=== PATIENT | male | born 1945 | race Caucasian/White ===

== ENCOUNTER 2016-12-15 08:00 | Inpatient (IN) | payer OTHER, BC ==
--- NOTE | 2016-12-15 08:39 | PDOC ---
History of Present Illness - General Chief Complaint: Pain, Acute Stated Complaint: ABDOMINAL PAIN Time Seen by Provider: 12/15/16 08:14 History Source: Patient - History of Present Illness Initial Comments: 12/15/16 08:37 CC: Abdominal Pain + Vomiting Patient is a 71 y.o. 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 Patient is unable to qualify the pain as stabbing/sharp/burning but states it is 10/10. On repeat exam patient notes he had a similar episode overnight on Monday when he woke with similar pain @ 3 am, vomited, and the pain resolved. Patient endorses a 1 day h/o of constipation and denies any fevers, chills, bloody stools or hematuria. Allergies: Aspirin Surgical: Cholecystectomy (2014); Appendectomy (childhood) Social: denies cigarettes, denies alcohol, denies recreational drugs PMD: Dr. Lucas Past History - Past Medical History Allergies/Adverse Reactions: Allergies Allergy/AdvReac Type Severity Reaction Status Date / Time aspirin Allergy Severe Swelling Verified 12/15/16 08:02 Home Medications: Ambulatory Orders NK [No Known Home Medication] 12/15/16 Anemia: No Asthma: No Cancer: No Cardiac Disorders: No CVA: No COPD: No CHF: No Dementia: No Diabetes: No GI Disorders: No Disorders: No HTN: No Hypercholesterolemia: No Liver Disease: No Seizures: No Thyroid Disease: No - Surgical History Abdominal Surgery: Yes (hernia) Appendectomy: Yes Cholecystectomy: Yes - Suicide/Smoking/Psychosocial Hx Smoking History: Never smoked Have you smoked in the past 12 months: No Information on smoking cessation initiated: No Hx Alcohol Use: No Drug/Substance Use Hx: No Substance Use Type: None Hx Substance Use Treatment: No Review of Systems - Review of Systems Constitutional: No: Chills, Fever Respiratory: No: Cough, Shortness of Breath Cardiac (ROS): No: Chest Pain, Lightheadedness, Palpitations ABD/GI: Yes: Vomiting : No: Burning, Dysuria All Other Systems: Reviewed and Negative *Physical Exam - Vital Signs Last Vital Signs Temp Pulse Resp BP Pulse Ox 99.1 F 89 20 137/72 96 12/15/16 08:03 12/15/16 08:03 12/15/16 08:03 12/15/16 08:03 12/15/16 08:03 - Physical Exam General Appearance: Yes: Nourished Neck: positive: Trachea midline, Supple Respiratory/Chest: positive: Lungs Clear, Normal Breath Sounds Cardiovascular: positive: Regular Rhythm, Regular Rate Gastrointestinal/Abdominal: positive: Tender (Diffuse Abdominal Tenderness in all 4 quadrants), Protuberent, Other. negative: Pulsatile Mass, Guarding, Rebound, Hernia Musculoskeletal: negative: CVA Tenderness (R), CVA Tenderness (L), Vertebral Tenderness Extremity: positive: Normal Capillary Refill, Normal Inspection Integumentary: positive: Normal Color, Dry, Warm Neurologic: positive: Fully Oriented, Alert ED Treatment Course - LABORATORY CBC & Chemistry Diagram: 12/17/16 07:00 12/17/16 07:00 Medical Decision Making - Medical Decision Making 12/15/16 10:13 Patient is a 71 y.o. male with a PMH of aortic dilitation (4.3 cm in 2016) who presents c/o abominal/chest pain + multiple episodes of non-bloody emesis. Initial DDX is for aortic dissection/aneurysm vs. pancreatitis vs. SBO vs. mesenteric ischemia. PLAN: 1. CBC, CMP 2. Lactic Acid 3. Troponin 4. EKG 12/15/16 10:35 Beside U/S shows normal sized descending aorta as well as normal cardiac contractility and LV size. Labs significant for leukocytosis (14) elevated LFT' s as well as Alkaline Phos. As patient has h/o cholecystectomy, liver U/S to evaluate for pathology. 12/15/16 13:29 Patient febrile @ 100; Prophylatic Abx (Metro/Levofloxacine) administered; Lactic Acid 2.8, commenced 1 L IV NS; CT shows mild CBD dilitation (0.9 --> 1.2 ) as well as possible live granuloma and splenomegaly. Dr. Brown, patient' s PCP, paged for admission. 12/15/16 13:46 Dr. Orozco, GI, paged for consult 12/15/16 13:52 Patient admitted under hospitalist service (admits for Dr. Brown) under Dr. Stahl. Patient's information entered incorrectly, PCP Dr. Lucas, contacted. 12/15/16 14:[address] Mccarthy surgical consult as well as Dr. Gibbs (GI); Landimitri consult cancelled 12/15/16 14:58 Dr. Mccarthy coming to evaluate patient; possible Dx CBD stone - will likely request MRI; Patient admitted for observation under Dr. Lucas. *DC/Admit/Observation/Transfer Diagnosis at time of Disposition: Common bile duct dilatation - Discharge Dispostion Condition at time of disposition: Good Admit: Yes - Referrals
[2016-12-15] MEDS ORDERED: morphine CARPU-JECT 2 MG/1 ML DISP.SYRIN IM ONE (08:44)
--- NOTE | 2016-12-15 08:49 | PDOC ---
Attending Attestation - Resident Resident Name: Barbara Duvall - ED Attending Attestation I have performed the following: I have examined & evaluated the patient, The case was reviewed & discussed with the resident, I agree w/resident's findings & plan, Exceptions are as noted - HPI HPI: 12/15/16 08:48 71yM with hx of thoracic aortic anrysm presents with complaint of abdominal pain. Pt notes that he started hving epigastric pain that is associated with vomiting since dinner, pt denies any bm/psasing flatus. no asosciate dfever/ chills, pt does note the pain radiates up to the chest bu tis unable to describe the nature of the pain otherwise. pt notes he did have similar sypmtoms on monday night into monday but resolved by monday. pt dnies any sob , numbnes/tingling/weakness, leg pain/swelling. - Physicial Exam PE: 12/15/16 09:04 GENERAL: The patient is awake, alert, and fully oriented, Uncomfortable appearing HEAD: Normocephalic, atraumatic. EYES: extraocular movements intact, sclera anicteric, conjunctiva clear. ENT: Normal voice, Moist mucous membranes. NECK: Normal range of motion, supple LUNGS: Breath sounds equal, clear to auscultation bilaterally. No wheezes, no rhonchi, no rales. HEART: Regular rate and rhythm, normal S1 and S2 without murmur, rub or gallop. ABDOMEN: mild diffuse tenderness throughout, no palpable pulsatile masses, + volutnary guarding, no rebound. No CVA tenderness EXTREMITIES: Normal range of motion, no edema. No clubbing or cyanosis. No cords, erythema, or tenderness. NEUROLOGICAL: No facial assymetry, Normal speech, movin gall 4 extremities spontaneously and symmetrically PSYCH: Normal mood, normal affect. SKIN: Warm, Dry, normal turgor, - Medical Decision Making 12/15/16 09:06 differential for the pts sypmtoms includes pancreatitis, gastritis, consider also possibly AAA, acs will ck labs will ckcxr wlil r/o acs mporphine for pain 12/15/16 10:17 The patient's blood work was reviewed and as noted for elevated LFTs and bilirubin of 4.5 Will obtain ultrasound of the liver and gb The patient is feeling significantly improved after morphine 12/15/16 17:10 pt had developed a fever and was written for abx the pts ct does show an dilated cbd pt was mitted pending GI consultation i nlight of fever, symptoms, consider cholangitis Heart Score/ECG Review - ECG Impressions Comment:: 12/15/16 10:16 Twelve-lead EKG was performed and reviewed by me. There is normal sinus rhythm with a normal rate. Rate of 78 The axis is normal. The intervals are normal. There is normal R wave progression There are no ST or T wave abnormalities. Impression: Normal twelve-lead EKG 12/15/16 10:17
[2016-12-15] MEDS ORDERED: morphine CARPU-JECT 4 MG/1 ML DISP.SYRIN IVPUSH ONE ×2 (08:51→12:25)
[2016-12-15] MEDS ORDERED: morphine CARPU-JECT 10 MG/1 ML DISP.SYRIN ONE ×2 (08:54→12:26)
[2016-12-15 09:20] LABS: BASOPHIL 0.3 % (0-2.0); EOSINOPHIL 0.2 % (0-4.5); MCH 30.6 pg (25.7-33.7); MEAN CELL VOLUME 92.6 fl (80-96); MEAN PLT VOLUME 10.2 fl (7.5-11.1); NEUTROPHILS 84.8 % (42.8-82.8); PLATELET COUNT 331 K/MM3 (134-434); RDW 14.2 % (11.9-15.9); WHITE BLOOD COUNT 12.9 K/mm3 (4.0-10.0)
[2016-12-15 09:47] LABS: ALBUMIN 3.9 g/dl (3.4-5.0); ALK PHOS 419 U/L (45-117); ANION GAP 11 (8-16); BILIRUBIN,TOTAL 4.5 mg/dL (0.2-1.0); CALCIUM 9.6 mg/dL (8.5-10.1); CO2 28 mmol/L (21-32); CPK 103 IU/L (39-308); GLUCOSE,RANDOM 235 mg/dL (74-106); SGPT/ALT 362 U/L (12-78); TOT PROT 7.7 g/dl (6.4-8.2)
[2016-12-15 09:49] LABS: TROPONIN I < 0.02 ng/ml (0.00-0.05)
[2016-12-15 10:00] LABS: SGOT/AST 379 U/L (15-37)
--- NOTE | 2016-12-15 11:53 | EKG ---
Test Reason : Blood Pressure : / mmHG Vent. Rate : 078 BPM Atrial Rate : 078 BPM P-R Int : 196 ms QRS Dur : 090 ms QT Int : 382 ms P-R-T Axes : 045 -07 029 degrees QTc Int : 435 ms NORMAL SINUS RHYTHM NORMAL ECG WHEN COMPARED WITH ECG OF 31-JUL-2012 12:16, NO SIGNIFICANT CHANGE WAS FOUND Confirmed by DENVER LIMON MD ([id number]) on 12/15/2016 11:52:52 AM Referred By: Confirmed By:DENVER LIMON MD
[2016-12-15] MEDS ORDERED: ONDANSETRON 4 MG/2 ML VIAL IVPUSH ONE (12:26)
[2016-12-15] MEDS ORDERED: ONDANSETRON 4 MG/2 ML VIAL ONE (12:27)
[2016-12-15] MEDS ORDERED: ACETAMINOPHEN 325 MG TABLET (FP) PO ONE (12:52)
[2016-12-15] MEDS ORDERED: METRONIDAZOLE 500 MG PREMIXED 100 ML IVPB ONE ×2 (12:55→14:22)
[2016-12-15] MEDS ORDERED: LEVOFLOXACIN 750 MG IVPB 150 ML IVPB ONE ×2 (12:55→14:21)
[2016-12-15] MEDS ORDERED: ACETAMINOPHEN 325 MG TABLET (FP) ONE (13:00)
[2016-12-15] MEDS ORDERED: SODIUM CHLORIDE 0.9% 1000 ML INFUS.BAG IV ONE (13:29)
[2016-12-15] MEDS ORDERED: PIPERACIL/TAZOB 3.375 GM 3.375 GM/50 ML PREMIX IVPB SCH (18:15)
[2016-12-15 18:32] VITALS: BMI 26.7
--- NOTE | 2016-12-15 18:37 | PN ---
Progress Note (short form) - Note Progress Note: case d/w Dr. Neville. suspected cholangitis. He will see patient later this evening In the interim: MRCP ordered however cancelled as Mr. Collins has metal fragments in body IV abx ordered: Zosyn, with dose ordered for now. ID consult placed NPO except meds with small sips water IV hydration Put on schedule for possible ERCP tomorrow
[2016-12-15] MEDS ORDERED: DEXTROSE 5%-NORMAL SALINE 1,000 ML IV SCH (18:45)
[2016-12-15] MEDS: PIPERACILLIN/TAZOB 3.375 GM 50 ML IVPB SCH (18:51)
--- NOTE | 2016-12-15 19:19 | CONSULT ---
Consult Consult Specialty:: Surgery Reason for Consultation:: Abdominal pain , abnormal liver function tests. - History of Present Illness Chief Complaint: Abdominal pain , manly in epigastrium since midnight. History of Present Illness: C/O sudden onset of abdominal pain in upper abdomen. He is known to have aneurysm of the ascending aorta, and has had a cholecystectomy. - History Source History Provided By: Patient Limitations to Obtaining History: No Limitations - Past Surgical History Past Surgical History: Yes: Cholecystectomy - Alcohol/Substance Use Hx Alcohol Use: No - Smoking History Smoking history: Never smoked Have you smoked in the past 12 months: No Home Medications - Allergies Allergies/Adverse Reactions: Allergies Allergy/AdvReac Type Severity Reaction Status Date / Time aspirin Allergy Severe Swelling Verified 12/15/16 08:02 - Home Medications Home Medications: Ambulatory Orders NK [No Known Home Medication] 12/15/16 Physical Exam Vital Signs: Vital Signs Temperature 99.2 F 12/15/16 18:20 Pulse Rate 94 H 12/15/16 18:20 Respiratory Rate 18 12/15/16 18:20 Blood Pressure 122/65 12/15/16 18:20 O2 Sat by Pulse Oximetry (%) 96 12/15/16 18:37 Gastrointestinal: Yes: Tenderness, Tenderness, Epigastrium Imaging - Results Cat Scan: Report Reviewed, Image Reviewed Ultrasound: Report Reviewed, Image Reviewed Problem List - Problems (1) Abdominal pain Code(s): R10.9 - UNSPECIFIED ABDOMINAL PAIN Qualifiers: Abdominal location: epigastric Qualified Code(s): R10.13 - Epigastric pain; R10.13 - Epigastric pain (2) Jaundice Code(s): R17 - UNSPECIFIED JAUNDICE (3) Abnormal liver enzymes Code(s): R74.8 - ABNORMAL LEVELS OF OTHER SERUM ENZYMES (4) Leucocytosis Code(s): D72.829 - ELEVATED WHITE BLOOD CELL COUNT, UNSPECIFIED Assessment/Plan G.I. work up. Planned to have ERCP tomorrow. ? Retained CBD stone, vs neoplasm. Will follow, Hydrate , antibiotics. Will follow.
--- NOTE | 2016-12-15 19:48 | HP ---
Admitting History and Physical - Primary Care Physician PCP: Jeremiah Lucas - Admission Chief Complaint: abd pain History of Present Illness: 71 y/o M w/ T2DM (diet controlled) who present to ED (via 911) for severe abd pain & n-v. The Pt states that he 1st started w/ abd PM late PM on sat 12/10/16 after having eaten at a restaurant. He says he was well up until that time. He developed upper abd pain after 7pm, w/ nausea. He induced vomiting with some relief, and went to bed, but several hours later he again re-developed upper abd pain. He again vomited several times into the night, then the discomfort slowly subsided. He felt weak and achy the following day and didn't eat or drink much. On 12/13/16 he felt better, and became more active, but ate light without any GI problem. He felt even better on 12/14/16, but didn't eat much until later that day when he was invited for dinner. he had pasta w/ fish sauce and cheese with a glass of wine. Upon going home, he again had a recurrence of the same Sx that he initially experienced on monday the which continued into this AM. He felt very weak and could not rise up and was then taken to the ED via EMS. He denied any diarrhea. He did not see any blood in the vomitus. He did say that he urine was a dark yellow on monday12/11/16, but cleared up afterwards. He was completely well up until 12/10/16 before eating at the restaurant. He denies any recent travel. He was given MS in the Ed to relieve his pain, and he feels fairly comfortable at this time. 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)) Musculoskeletal: Yes: Osteoarthritis (mild) Endocrine: Yes: Diabetes Mellitus (diet controlled) - Past Surgical History Past Surgical History: Yes: Appendectomy, Cholecystectomy, Hernia Repair - Smoking History Smoking history: Never smoked Have you smoked in the past 12 months: No - Alcohol/Substance Use Hx Alcohol Use: No History of Substance Use: reports: None - Social History Usual Living Arrangement: Yes: Alone () Occupation: retired (construction) History of Recent Travel: No Other Social History: hx of accidental shrapnel injury in the s while in the Home Medications - Allergies Allergies/Adverse Reactions: Allergies Allergy/AdvReac Type Severity Reaction Status Date / Time aspirin Allergy Severe Swelling Verified 12/15/16 08:02 - Home Medications Home Medications: Ambulatory Orders NK [No Known Home Medication] 12/15/16 Family Disease History - Family Disease History Family History: Unremarkable Review of Systems - Review of Systems Constitutional: reports: Weakness Eyes: reports: No Symptoms HENT: reports: No Symptoms Neck: reports: No Symptoms Cardiovascular: reports: No Symptoms Respiratory: reports: SOB (while in pain) Gastrointestinal: reports: Abdominal Pain, Vomiting Genitourinary: reports: No Symptoms Musculoskeletal: reports: Muscle Weakness (FUSE COILER) Physical Examination Vital Signs: Vital Signs Temperature 99.2 F 12/15/16 18:20 Pulse Rate 94 H 12/15/16 18:20 Respiratory Rate 18 12/15/16 18:20 Blood Pressure 122/65 12/15/16 18:20 O2 Sat by Pulse Oximetry (%) 96 12/15/16 18:37 Findings/Remarks: found lying in bed, fully alert in NAD skin--warm & flushed; no rashes head--NC eyes--bilat mild injection oral--no gross mucosal lesions appreciated; all structures at midline neck--supple, no masses lungs--grossly clear bilat, unlabored heart--RR abd--BS mildly present, abd soft, NT, minimla non lisbeth tenderness in upper abd ext--No CCE; DP's bilat felt; no soft tissue tenderness, no joint pain on ROM neuro--fully alert and coherent to baseline; no gross motor/sens deficits; speech and cogn appear to be intact Labs: Troponin, BNP 12/15/16 09:00 Troponin I < 0.02 CBCD WBC 12.9 K/mm3 (4.0-10.0) H D 12/15/16 09:00 RBC 5.39 M/mm3 (4.00-5.60) 12/15/16 09:00 Hgb 16.5 GM/dL (11.7-16.9) 12/15/16 09:00 Hct 50.0 % (35.4-49) H 12/15/16 09:00 MCV 92.6 fl (80-96) 12/15/16 09:00 MCHC 33.0 g/dl (32.0-35.9) 12/15/16 09:00 RDW 14.2 % (11.9-15.9) 12/15/16 09:00 Plt Count 331 K/MM3 (134-434) D 12/15/16 09:00 MPV 10.2 fl (7.5-11.1) 12/15/16 09:00 CMP Sodium 136 mmol/L (136-145) 12/15/16 09:00 Potassium 4.7 mmol/L (3.5-5.1) 12/15/16 09:00 Chloride 97 mmol/L (98-107) L 12/15/16 09:00 Carbon Dioxide 28 mmol/L (21-32) 12/15/16 09:00 Anion Gap 11 (8-16) 12/15/16 09:00 BUN 22 mg/dL (7-18) H 12/15/16 09:00 Creatinine 1.0 mg/dL (0.7-1.3) D 12/15/16 09:00 Creat Clearance w eGFR > 60 (>60) 12/15/16 09:00 Random Glucose 235 mg/dL (74-106) H D 12/15/16 09:00 Calcium 9.6 mg/dL (8.5-10.1) 12/15/16 09:00 Total Bilirubin 4.5 mg/dL (0.2-1.0) H D 12/15/16 09:00 AST 379 U/L (15-37) H D 12/15/16 09:00 ALT 362 U/L (12-78) H D 12/15/16 09:00 Alkaline Phosphatase 419 U/L (45-117) H D 12/15/16 09:00 Total Protein 7.7 g/dl (6.4-8.2) D 12/15/16 09:00 Albumin 3.9 g/dl (3.4-5.0) D 12/15/16 09:00 CARDIAC ENZYMES Creatine Kinase 103 IU/L (39-308) 12/15/16 09:00 Troponin I < 0.02 ng/ml (0.00-0.05) 12/15/16 09:00 Imaging - Results Cat Scan: Report Reviewed Ultrasound: Report Reviewed EKG: Report Reviewed Problem List - Problems (1) Abdominal pain Assessment/Plan: acute onset, in the aftermath of a restaurant meal; which subsided in the days after; but re-emerged last PM after intake of a moderate sized meal; PLAN: NPO, Follow LFTS, GI eval. IV abs Code(s): R10.9 - UNSPECIFIED ABDOMINAL PAIN Qualifiers: Abdominal location: right upper quadrant Qualified Code(s): R10.11 - Right upper quadrant pain; R10.11 - Right upper quadrant pain (2) Abnormal liver enzymes Assessment/Plan: in connection with acute abd pain & fever; cause unclear if due to Hepatitis or a CBD narrowing as suggested. Cannit undertake MRCP, thus may need ERCP. PLAN: keep NPO Code(s): R74.8 - ABNORMAL LEVELS OF OTHER SERUM ENZYMES (3) Common bile duct dilatation Assessment/Plan: noted on CT; could be 2nd to past cholecystectomy but may need to r/o distal obstruction Code(s): K83.8 - OTHER SPECIFIED DISEASES OF BILIARY TRACT (4) Diabetes mellitus type 2, diet-controlled Assessment/Plan: developed over 1 yr ago; has been managed by diet control; will check BGMs and a1c Code(s): E11.9 - TYPE 2 DIABETES MELLITUS WITHOUT COMPLICATIONS (5) Ascending aortic aneurysm Assessment/Plan: not new; previously noted; appears stable in size (see chest CT) Code(s): I71.2 - THORACIC AORTIC ANEURYSM, WITHOUT RUPTURE (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 ~~~~~~~~~~~~~~~~~~~~~~~~~~~~~~~~ Dr Lucas......1 Hr
[2016-12-15] MEDS ORDERED: PT OWN MED DRAWER 7, Y5N ONE (20:15)
[2016-12-15] MEDS ORDERED: morphine CARPU-JECT 4 MG/1 ML DISP.SYRIN IVPUSH PRN (20:19)
[2016-12-15] MEDS ORDERED: ACETAMINOPHEN 650 MG/20.3 ML ORAL SOLUTION (CUPS) PO PRN (20:20)
[2016-12-15] MEDS ORDERED: INSULIN SLIDING SCALE (NOVOLOG) 1 VIAL SQ SCH (20:30)
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
[2016-12-15] MEDS: LACTATED RINGERS SOLUTION 1,000 ML IV SCH (21:52)
[2016-12-15] MEDS: INSULIN SLIDING SCALE (NOVOLOG) 1 VIAL SQ SCH (23:30)
[2016-12-16] MEDS: PIPERACILLIN/TAZOB 3.375 GM 50 ML IVPB SCH ×6 (02:34→20:56)
[2016-12-16] MEDS: LACTATED RINGERS SOLUTION 1,000 ML IV SCH ×2 (05:00→23:31)
[2016-12-16] MEDS: INSULIN SLIDING SCALE (NOVOLOG) 1 VIAL SQ SCH ×3 (06:05→19:23)
[2016-12-16 08:09] LABS: BASOPHIL 0.6 % (0-2.0); EOSINOPHIL 0.7 % (0-4.5); MCH 30.8 pg (25.7-33.7); MCHC 33.2 g/dl (32.0-35.9); MEAN CELL VOLUME 92.7 fl (80-96); MEAN PLT VOLUME 10.3 fl (7.5-11.1); NEUTROPHILS 81.3 % (42.8-82.8); PLATELET COUNT 214 K/MM3 (134-434); RDW 14.6 % (11.9-15.9); WHITE BLOOD COUNT 12.5 K/mm3 (4.0-10.0)
[2016-12-16 08:38] LABS: INR 1.33 (0.82-1.09)
[2016-12-16 08:41] LABS: ACTIVATED PTT 29.4 SECONDS (26.9-34.4)
[2016-12-16 08:43] LABS: BILIRUBIN,DIRECT 8.9 mg/dL (0.0-0.2)
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
[2016-12-16 08:47] LABS: ALBUMIN 2.7 g/dl (3.4-5.0); ANION GAP 9 (8-16); CALCIUM 7.9 mg/dL (8.5-10.1); CO2 28 mmol/L (21-32); GLUCOSE,RANDOM 147 mg/dL (74-106)
[2016-12-16 08:52] LABS: ALK PHOS 291 U/L (45-117); BILIRUBIN,TOTAL 11.2 mg/dL (0.2-1.0); CREATININE 1.1 mg/dL (0.7-1.3); SGOT/AST 121 U/L (15-37); SGPT/ALT 231 U/L (12-78); TOT PROT 5.5 g/dl (6.4-8.2)
[2016-12-16] MEDS ORDERED: PT OWN MED DRAWER 7, Y5N ONE (09:35)
[2016-12-16 09:48] LABS: URINE APPEARANCE CLEAR; URINE BLOOD 3+ (NEGATIVE); URINE COLOR AMBER; URINE GLUCOSE (UA) NEGATIVE (NEGATIVE); URINE KETONE NEGATIVE (NEGATIVE); URINE NITRITE NEGATIVE (NEGATIVE); URINE UROBILINOGEN 4.0 E.U/dl mg/dL (0.2-1.0)
[2016-12-16 09:51] LABS: URINE PROTEIN 1+ (NEGATIVE)
[2016-12-16 09:53] LABS: URINE RBC 8 /hpf (0-3); URINE WBC 1 /hpf (3-5)
[2016-12-16] MEDS ORDERED: INDOMETHACIN 50 MG RECTAL SUPPOSITORY PR ONE ×2 (11:00→15:20)
--- NOTE | 2016-12-16 11:07 | PN ---
Teaching Attending Note Name of Resident: Mika Muñiz ATTENDING PHYSICIAN STATEMENT I saw and evaluated the patient. I reviewed the resident's note and discussed the case with the resident. I agree with the resident's findings and plan as documented. SUBJECTIVE: 71 y/o male s/p cholecystectomy admitted with RUQ pain. Pt jaundiced. CT shows dilated bile ducts. Febrile with elevated LFTs. BC +GNR OBJECTIVE: Afebrile Icteric Cor S1S2 Lungs clear + RUQ tenderness ASSESSMENT AND PLAN: Gram Negative bacteremia/ sepsis secondary to biliary tract source R/O Choledocholithiasis Await cultures Continue empiric zosyn ERCP
[2016-12-16] MEDS ORDERED: PHYTONADIONE 10 MG/1 ML AMP IVPB ONE ×2 (11:30→15:40)
[2016-12-16 11:34] LABS: URINE LEUK ESTERASE Negative (NEGATIVE)
[2016-12-16] MEDS ORDERED: ONDANSETRON 4 MG/2 ML VIAL IVPUSH PRN (14:43)
[2016-12-16] MEDS ORDERED: PROMETHAZINE HCL 25 MG/1 ML VIAL IVPUSH PRN (14:43)
[2016-12-16] MEDS ORDERED: LACTATED RINGERS SOLUTION 1,000 ML IV SCH ×2 (14:45→18:00)
[2016-12-16] MEDS ORDERED: PROPOFOL 20 ML ONE (14:46)
[2016-12-16] MEDS ORDERED: LIDOCAINE HCL/PF 2% SDV 5ML VIAL ONE (14:46)
[2016-12-16] MEDS ORDERED: ROCURONIUM BROMIDE 50 MG/5 ML VIAL ONE (14:46)
[2016-12-16] MEDS ORDERED: GLYCOPYRROLATE 0.2 MG/1 ML VIAL ONE ×3 (14:49)
[2016-12-16] MEDS ORDERED: ONDANSETRON 4 MG/2 ML VIAL ONE (14:49)
[2016-12-16] MEDS ORDERED: NEOSTIGMINE METHYLSULFATE 0.5 MG/ML - 10 ML MDV ONE (14:50)
[2016-12-16] MEDS ORDERED: DEXAMETHASONE SOD PHOSPHATE 10 MG/1 ML VIAL ONE (14:50)
[2016-12-16] MEDS ORDERED: PIPERACILLIN/TAZOB 3.375 GM 50 ML IVPB SCH (15:00)
[2016-12-16] MEDS ORDERED: ceFAZolin SODIUM 1 GM VIAL ONE (15:03)
[2016-12-16] MEDS ORDERED: ceFAZolin SODIUM 1 GM VIAL IVPB ONE (15:40)
--- NOTE | 2016-12-16 17:46 | PN ---
Progress Note (short form) - Note Progress Note: GI Procedure NOte: Please see ERCP report. I was inabole to cannnlat eand access the CBD even after attempting a precut fistulotomy. I discussed the situation with Dr. Martinez and the family and decision was made under the children's informed consent to proceed with PTC while under general anesthesia. I had discussed this possibility with Rian and his daughter last night. PTC revealed a dilated CBD with multiple stones and a tight distal CBD stricture. Dr Martinez yielded blood pus upon accessing the duct. Gram negative organisms are growing in the blood. He was able to pass a stent through the stricture and into the duodenum. Findings were discussed with the family and with Dr Daryl Lucas. Vitamin K was administered IVPB. Problem List - Problems (1) Hx of appendectomy Code(s): Z90.49 - ACQUIRED ABSENCE OF OTHER SPECIFIED PARTS OF DIGESTIVE TRACT (2) Colon polyps Code(s): K63.5 - POLYP OF COLON
--- NOTE | 2016-12-16 20:51 | PN ---
Progress Note (short form) - Note Progress Note: medical note Current Medications Acetaminophen (Tylenol Oral Solution -) 650 mg PO Q6H PRN PRN Reason: FEVER OR PAIN Piperacillin/Tazobactam/Dextrose (Zosyn 3.375gm Ivpb (Premix)) 50 mls @ 100 mls /hr IVPB Q6H-IV ROCKY PRN Reason: Protocol Last Admin: 12/16/16 19:22 Dose: Not Given Lactated Ringer's (Lactated Ringers Solution) 1,000 mls @ 250 mls/hr IV ASDIR ROCKY Stop: 12/17/16 01:00 Last Admin: 12/16/16 19:23 Dose: Not Given Lactated Ringer's (Lactated Ringers Solution) 1,000 mls @ 200 mls/hr IV ASDIR ROCKY Stop: 12/17/16 07:00 Lactated Ringer's (Lactated Ringers Solution) 1,000 mls @ 150 mls/hr IV ASDIR ROCKY Stop: 12/17/16 14:00 Lactated Ringer's (Lactated Ringers Solution) 1,000 mls @ 125 mls/hr IV ASDIR ROCKY Insulin Aspart (Novolog Vial Sliding Scale -) 1 vial SQ Q6HPO ROCKY PRN Reason: Protocol Last Admin: 12/16/16 19:23 Dose: Not Given Morphine Sulfate (Morphine Injection -) 4 mg IVPUSH Q6H PRN PRN Reason: PAIN Ondansetron HCl (Zofran Injection) 4 mg IVPUSH Q6H PRN PRN Reason: NAUSEA AND/OR VOMITING Stop: 12/16/16 20:44 Laboratory Results - last 24 hr 12/15/16 12/15/16 12/16/16 21:24 23:24 05:53 WBC RBC Hgb Hct MCV MCH MCHC RDW Plt Count MPV Neutrophils % Lymphocytes % Monocytes % Eosinophils % Basophils % PT with INR INR PTT (Actin FS) Sodium Potassium Chloride Carbon Dioxide Anion Gap BUN Creatinine Creat Clearance w eGFR POC Glucometer 196 177 145 Random Glucose Hemoglobin A1c % Lactic Acid Calcium Total Bilirubin Direct Bilirubin AST ALT Alkaline Phosphatase Total Protein Albumin Total Amylase Lipase Urine Color Urine Appearance Urine pH Ur Specific [place] Urine Protein Urine Glucose (UA) Urine Ketones Urine Blood Urine Nitrite Urine Bilirubin Urine Urobilinogen Ur Leukocyte Esterase Urine RBC Urine WBC 12/16/16 12/16/16 12/16/16 06:00 06:30 06:30 WBC 12.5 H RBC 4.40 Hgb 13.5 D Hct 40.8 D MCV 92.7 MCH 30.8 MCHC 33.2 RDW 14.6 Plt Count 214 D MPV 10.3 Neutrophils % 81.3 Lymphocytes % 9.9 D Monocytes % 7.5 Eosinophils % 0.7 D Basophils % 0.6 PT with INR 15.00 H INR 1.33 H D PTT (Actin FS) 29.4 Sodium Potassium Chloride Carbon Dioxide Anion Gap BUN Creatinine Creat Clearance w eGFR POC Glucometer Random Glucose Hemoglobin A1c % Lactic Acid Calcium Total Bilirubin Direct Bilirubin AST ALT Alkaline Phosphatase Total Protein Albumin Total Amylase Lipase Urine Color Ce Urine Appearance Clear Urine pH 5.0 Ur Specific [place] 1.015 Urine Protein 1+ H Urine Glucose (UA) Negative Urine Ketones Negative Urine Blood 3+ H Urine Nitrite Negative Urine Bilirubin 4.0 Urine Urobilinogen 4.0 e.u/dl Ur Leukocyte Esterase Negative Urine RBC 8 Urine WBC 1 12/16/16 12/16/16 12/16/16 06:30 06:30 06:30 WBC RBC Hgb Hct MCV MCH MCHC RDW Plt Count MPV Neutrophils % Lymphocytes % Monocytes % Eosinophils % Basophils % PT with INR INR PTT (Actin FS) Sodium 139 Potassium 4.0 Chloride 102 Carbon Dioxide 28 Anion Gap 9 BUN 25 H Creatinine 1.1 Creat Clearance w eGFR > 60 POC Glucometer Random Glucose 147 H D Hemoglobin A1c % 6.4 H D Lactic Acid 1.1 Calcium 7.9 L Total Bilirubin 11.2 H D Direct Bilirubin AST 121 H D ALT 231 H D Alkaline Phosphatase 291 H D Total Protein 5.5 L D Albumin 2.7 L D Total Amylase Lipase Urine Color Urine Appearance Urine pH Ur Specific [place] Urine Protein Urine Glucose (UA) Urine Ketones Urine Blood Urine Nitrite Urine Bilirubin Urine Urobilinogen Ur Leukocyte Esterase Urine RBC Urine WBC 12/16/16 12/16/16 06:30 11:21 WBC RBC Hgb Hct MCV MCH MCHC RDW Plt Count MPV Neutrophils % Lymphocytes % Monocytes % Eosinophils % Basophils % PT with INR INR PTT (Actin FS) Sodium Potassium Chloride Carbon Dioxide Anion Gap BUN Creatinine Creat Clearance w eGFR POC Glucometer 146 Random Glucose Hemoglobin A1c % Lactic Acid Calcium Total Bilirubin Direct Bilirubin 8.9 H AST ALT Alkaline Phosphatase Total Protein Albumin Total Amylase 26 Lipase 113 Urine Color Urine Appearance Urine pH Ur Specific [place] Urine Protein Urine Glucose (UA) Urine Ketones Urine Blood Urine Nitrite Urine Bilirubin Urine Urobilinogen Ur Leukocyte Esterase Urine RBC Urine WBC Vital Signs Temperature 98.4 F 12/16/16 19:10 Pulse Rate 61 12/16/16 19:01 Respiratory Rate 61 H 12/16/16 19:10 Blood Pressure 140/72 12/16/16 19:10 O2 Sat by Pulse Oximetry (%) 96 12/16/16 18:30 post Op state ````````````````````` heart-RR neuro--groggy ```````````````````````````````````` Summ > Obstructive jaundice--2nd CBD stones; which could not be removed by ERCP, however, a stent was placed through the stricture by IR. Further intervention will likley be required, but will need to attain a level of stabilization before the next step is taken. (see GI note) PLAN: folow chemistries. > Sepsis--Gm(-) org; currently afebrile and not in shock, nor with end organ involvement; lactic acid is down to NL. Will cont Zosyn, and await final ID > DM--T2; a1c at 6.4 without meds; cont monitoring for now > hematuria--cause uncertain; may need US. ~~~~~~~~~~~~~~~~~ Dr Lucas Problem List - Problems (1) Abdominal pain Code(s): R10.9 - UNSPECIFIED ABDOMINAL PAIN Qualifiers: Abdominal location: right upper quadrant Qualified Code(s): R10.11 - Right upper quadrant pain; R10.11 - Right upper quadrant pain (2) Abnormal liver enzymes Code(s): R74.8 - ABNORMAL LEVELS OF OTHER SERUM ENZYMES (3) Common bile duct dilatation Code(s): K83.8 - OTHER SPECIFIED DISEASES OF BILIARY TRACT (4) Diabetes mellitus type 2, diet-controlled Code(s): E11.9 - TYPE 2 DIABETES MELLITUS WITHOUT COMPLICATIONS (5) Ascending aortic aneurysm Code(s): I71.2 - THORACIC AORTIC ANEURYSM, WITHOUT RUPTURE (6) Pulmonary granuloma Code(s): 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
[2016-12-16] MEDS ORDERED: morphine CARPU-JECT 2 MG/1 ML DISP.SYRIN IVPUSH PRN (23:37)
[2016-12-17] MEDS: INSULIN SLIDING SCALE (NOVOLOG) 1 VIAL SQ SCH ×4 (00:05→18:30)
[2016-12-17] MEDS: PIPERACILLIN/TAZOB 3.375 GM 50 ML IVPB SCH (02:44)
[2016-12-17] MEDS: LACTATED RINGERS SOLUTION 1,000 ML IV SCH ×5 (05:12→21:40)
[2016-12-17 07:51] LABS: MCH 30.7 pg (25.7-33.7); MCHC 32.8 g/dl (32.0-35.9); MEAN CELL VOLUME 93.4 fl (80-96); MEAN PLT VOLUME 10.3 fl (7.5-11.1); NEUTROPHILS 86.8 % (42.8-82.8); PLATELET COUNT 212 K/MM3 (134-434); RDW 14.5 % (11.9-15.9); WHITE BLOOD COUNT 11.4 K/mm3 (4.0-10.0)
[2016-12-17 08:14] LABS: INR 1.07 (0.82-1.09); PROTHROMBIN TIME (PATIENT) 12.1 SEC (9.98-11.88)
--- NOTE | 2016-12-17 08:28 | PN ---
Progress Note (short form) - Note Progress Note: Anesthesia Post op Pt seen and examined S:alert and awake O: Vital Signs Temperature 98.1 F 12/17/16 06:58 Pulse Rate 46 L 12/17/16 06:58 Respiratory Rate 20 12/17/16 06:58 Blood Pressure 107/58 12/17/16 06:58 O2 Sat by Pulse Oximetry (%) 99 12/16/16 21:00 CBC, BMP 12/17/16 07:00 A/P: Current Active Problems Abdominal pain (Acute) Abnormal liver enzymes (Acute) Ascending aortic aneurysm (Acute) Colon polyps (Acute) Common bile duct dilatation (Acute) Diabetes mellitus type 2, diet-controlled (Acute) History of cholecystectomy (Acute) Hx of appendectomy (Acute) Jaundice (Acute) Leucocytosis (Acute) Pulmonary granuloma (Acute) s/p eteroscopy percutanous billiary cather placement Doing well post op Continue current care Will Love MD
--- NOTE | 2016-12-17 08:36 | PN ---
Progress Note, Physician Chief Complaint: ID Unable to perform ERCP so percutaneous biliary drain place IR Dr Peterson Pus upon accessing duct Zosyn q 6 H No fever O2 sat OFF oxygen 95% - Current Medication List Current Medications: Active Medications Acetaminophen (Tylenol Oral Solution -) 650 mg PO Q6H PRN PRN Reason: FEVER OR PAIN Piperacillin/Tazobactam/Dextrose (Zosyn 3.375gm Ivpb (Premix)) 50 mls @ 100 mls /hr IVPB Q6H-IV ROCKY PRN Reason: Protocol Last Admin: 12/17/16 02:44 Dose: 100 mls/hr Lactated Ringer's (Lactated Ringers Solution) 1,000 mls @ 150 mls/hr IV ASDIR ROCKY Stop: 12/17/16 14:00 Last Admin: 12/17/16 05:13 Dose: 150 mls/hr Lactated Ringer's (Lactated Ringers Solution) 1,000 mls @ 125 mls/hr IV ASDIR ROCKY Insulin Aspart (Novolog Vial Sliding Scale -) 1 vial SQ Q6HPO ROCKY PRN Reason: Protocol Last Admin: 12/17/16 06:04 Dose: Not Given Morphine Sulfate (Morphine Injection -) 4 mg IVPUSH Q6H PRN PRN Reason: PAIN Last Admin: 12/16/16 23:45 Dose: 4 mg - Objective Vital Signs: Vital Signs Temperature 98.1 F 12/17/16 06:58 Pulse Rate 46 L 12/17/16 06:58 Respiratory Rate 20 12/17/16 06:58 Blood Pressure 107/58 12/17/16 06:58 O2 Sat by Pulse Oximetry (%) 99 12/16/16 21:00 Constitutional: Yes: Well Nourished, No Distress Eyes: Yes: WNL, Conjunctiva Clear HENT: Yes: WNL, Atraumatic Neck: Yes: WNL, Supple Cardiovascular: Yes: Regular Rate and Rhythm, S1, S2. No: Tachycardia, Murmur Respiratory: Yes: WNL, Regular, Diminished. No: Rales, Rhonchi Gastrointestinal: Yes: Soft, Other (MIld RUQ tenderness with drain). No: Tenderness Labs: CBC, BMP 12/17/16 07:00 INR, PTT INR 1.07 (0.82-1.09) 12/17/16 07:00 Assessment/Plan Microbiology 12/15/16 15:30 Blood - Peripheral Venous Blood Culture - Preliminary Pending Organism 12/15/16 15:30 Blood - Peripheral Venous Blood Culture - Preliminary Gram Negative [place] Laboratory Tests 12/16/16 12/17/16 12/17/16 06:30 07:00 07:00 WBC 11.4 H Hct 41.2 Plt Count 212 INR 1.07 Total Bilirubin 11.2 H D AST 121 H D ALT 231 H D Alkaline Phosphatase 291 H D Assessment Cholangitis with GNB bacateremia on Zosyn Biliary drain for decompression CBD obstruction Plan Continue Zosyn pending final culture report Culture drainage Charlotte GONZALEZ
[2016-12-17 08:38] LABS: ALBUMIN 2.3 g/dl (3.4-5.0); AMYLASE 134 U/L (25-115); ANION GAP 10 (8-16); CALCIUM 8.1 mg/dL (8.5-10.1); CO2 27 mmol/L (21-32); GLUCOSE,RANDOM 225 mg/dL (74-106)
[2016-12-17 08:44] LABS: ALK PHOS 272 U/L (45-117); BILIRUBIN,DIRECT 4.1 mg/dL (0.0-0.2); BILIRUBIN,TOTAL 5.2 mg/dL (0.2-1.0); C-REACTIVE PROTEIN 11.9 MG/DL (0.00-0.3); CREATININE 1.1 mg/dL (0.7-1.3); SGOT/AST 53 U/L (15-37); SGPT/ALT 146 U/L (12-78); TOT PROT 5.3 g/dl (6.4-8.2)
[2016-12-17] MEDS: PIPERACILLIN/TAZOB 4.5 GM 100 ML IVPB SCH ×2 (11:56→18:29)
--- NOTE | 2016-12-17 12:22 | PN ---
Progress Note (short form) - Note Progress Note: ^^^^^^^^^^^ medical Laboratory Results - last 24 hr 12/16/16 12/17/16 12/17/16 21:20 05:50 07:00 WBC RBC Hgb Hct MCV MCH MCHC RDW Plt Count MPV Neutrophils % Lymphocytes % Monocytes % Eosinophils % Basophils % PT with INR INR Sodium 137 Potassium 4.3 Chloride 100 Carbon Dioxide 27 Anion Gap 10 BUN 31 H D Creatinine 1.1 Creat Clearance w eGFR > 60 POC Glucometer 283 218 Random Glucose 225 H D Calcium 8.1 L Total Bilirubin 5.2 H D Direct Bilirubin 4.1 H D AST 53 H D ALT 146 H D Alkaline Phosphatase 272 H C-Reactive Protein 11.9 H Total Protein 5.3 L Albumin 2.3 L Total Amylase 134 H D Lipase 2167 H 12/17/16 12/17/16 12/17/16 07:00 07:00 11:10 WBC 11.4 H RBC 4.41 Hgb 13.5 Hct 41.2 MCV 93.4 MCH 30.7 MCHC 32.8 RDW 14.5 Plt Count 212 MPV 10.3 Neutrophils % 86.8 H Lymphocytes % 8.2 Monocytes % 5.0 Eosinophils % 0.0 D Basophils % 0.0 PT with INR 12.10 H INR 1.07 Sodium Potassium Chloride Carbon Dioxide Anion Gap BUN Creatinine Creat Clearance w eGFR POC Glucometer 221 Random Glucose Calcium Total Bilirubin Direct Bilirubin AST ALT Alkaline Phosphatase C-Reactive Protein Total Protein Albumin Total Amylase Lipase Vital Signs Temperature 98.1 F 12/17/16 06:58 Pulse Rate 46 L 12/17/16 06:58 Respiratory Rate 20 12/17/16 06:58 Blood Pressure 107/58 12/17/16 06:58 O2 Sat by Pulse Oximetry (%) 99 12/16/16 21:00 no abd pains; ate liquidy diet ````````````````````` skin--icteric eyes--eomi lungs--clear heart-RR abd--with percut drain; that is draining biliary fluid; soft, NT neuro--groggy ```````````````````````````````````` Summ > Obstructive jaundice--2nd CBD stones & CBD stricture; which could not be cleared by ERCP,now has percut drain. Further intervention will be required, but will need to attain a level of stabilization before the next step is taken. Cont IV Abs; monitor blood work. > Sepsis--Gm(-) org; currently afebrile and not in shock, Will cont Zosyn, ( see ID note) > DM--BGM's vary; was in 200's this AM; cont cover scale for now > Elevated Lipase--without abd pain; post procedure; will follow levels > hematuria--cause uncertain; may need US. ~~~~~~~~~~~~~~~~~ Dr Lucas Problem List - Problems (1) Abdominal pain Code(s): R10.9 - UNSPECIFIED ABDOMINAL PAIN Qualifiers: Abdominal location: right upper quadrant Qualified Code(s): R10.11 - Right upper quadrant pain; R10.11 - Right upper quadrant pain (2) Abnormal liver enzymes Code(s): R74.8 - ABNORMAL LEVELS OF OTHER SERUM ENZYMES (3) Common bile duct dilatation Code(s): K83.8 - OTHER SPECIFIED DISEASES OF BILIARY TRACT (4) Diabetes mellitus type 2, diet-controlled Code(s): E11.9 - TYPE 2 DIABETES MELLITUS WITHOUT COMPLICATIONS (5) Ascending aortic aneurysm Code(s): I71.2 - THORACIC AORTIC ANEURYSM, WITHOUT RUPTURE (6) Pulmonary granuloma Code(s): 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
--- NOTE | 2016-12-17 13:34 | PN ---
GI Progress Note Subjective: GI NOte: Blood is growing enterobacter cloacae. Bilirubin has fallen to 5.6. No fevers. Had pain last night but none today and is tolerating liquids. I explained yesterday's events in detail to Rian with his daughter present. 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 This will allow removal of the external stent and bile bag. I did explain that he may need repeated stent exchanges and that even after this the stricture may not open up enough and that he may need a choledochojejunostomy. Given this complexity I advised that this be undertaken at a tertiary care center. I offered [facility], [facility] and [facility]. [place] [facility] - Objective Vital Signs: Vital Signs Temperature 98.1 F 12/17/16 06:58 Pulse Rate 46 L 12/17/16 06:58 Respiratory Rate 20 12/17/16 06:58 Blood Pressure 107/58 12/17/16 06:58 O2 Sat by Pulse Oximetry (%) 99 12/16/16 21:00 Constitutional: Calm Eyes: Yes: Sclera Icterus Cardiovascular: Yes: Regular Rate and Rhythm Respiratory: Yes: CTA Bilaterally Gastrointestinal Inspection: Yes: Other (RUQ catheter and bile bag is intact and draining nicely.) ...Auscultate: Yes: Normoactive Bowel Sounds ...Palpate: Yes: Soft, Other (nontender) Labs: CBC, BMP 12/17/16 07:00 12/17/16 07:00 INR, PTT INR 1.07 (0.82-1.09) 12/17/16 07:00 Microbiology 12/15/16 15:30 Blood - Peripheral Venous Blood Culture - Final Enterobacter Cloacae Laboratory Tests 12/15/16 12/16/16 12/16/16 09:00 06:30 06:30 WBC 12.5 H Hgb Total Bilirubin 4.5 H D 11.2 H D Direct Bilirubin ALT Alkaline Phosphatase C-Reactive Protein Total Amylase Lipase 12/17/16 12/17/16 07:00 07:00 WBC 11.4 H Hgb 13.5 Total Bilirubin 5.2 H D Direct Bilirubin 4.1 H D ALT 146 H D Alkaline Phosphatase 272 H C-Reactive Protein 11.9 H Total Amylase 134 H D Lipase 2167 H Assessment/Plan Ascending cholangitis responding to external and internal drainage. Will advance diet as he does not appear to have clinical pancreatitis . The lipase elevation reflects yesterday's manipulations. I will [place] [facility] [place] try to arrange [place]. Problem List - Problems (1) Hx of appendectomy Code(s): Z90.49 - ACQUIRED ABSENCE OF OTHER SPECIFIED PARTS OF DIGESTIVE TRACT (2) Colon polyps Code(s): K63.5 - POLYP OF COLON
[2016-12-17] MEDS ORDERED: PT OWN MED DRAWER 7, Y5N ONE (18:27)
[2016-12-18] MEDS: INSULIN SLIDING SCALE (NOVOLOG) 1 VIAL SQ SCH ×4 (00:47→17:03)
[2016-12-18] MEDS ORDERED: PT OWN MED DRAWER 7, Y5N ONE ×7 (01:06→17:11)
[2016-12-18] MEDS: PIPERACILLIN/TAZOB 4.5 GM 100 ML IVPB SCH ×3 (01:10→17:03)
[2016-12-18] MEDS: LACTATED RINGERS SOLUTION 1,000 ML IV SCH ×2 (07:08→16:35)
[2016-12-18 08:06] LABS: BASOPHIL 0.2 % (0-2.0); EOSINOPHIL 0.4 % (0-4.5); MCH 30.5 pg (25.7-33.7); MCHC 32.7 g/dl (32.0-35.9); MEAN CELL VOLUME 93.3 fl (80-96); MEAN PLT VOLUME 10.3 fl (7.5-11.1); NEUTROPHILS 79.2 % (42.8-82.8); PLATELET COUNT 226 K/MM3 (134-434); RDW 14.9 % (11.9-15.9); WHITE BLOOD COUNT 12.3 K/mm3 (4.0-10.0)
[2016-12-18 08:31] LABS: ALBUMIN 2.5 g/dl (3.4-5.0); ANION GAP 9 (8-16); CO2 28 mmol/L (21-32); GLUCOSE,RANDOM 178 mg/dL (74-106); MAGNESIUM 2.4 mg/dL (1.8-2.4)
[2016-12-18 08:32] LABS: BILIRUBIN,DIRECT 2.5 mg/dL (0.0-0.2); C-REACTIVE PROTEIN 6.5 MG/DL (0.00-0.3)
[2016-12-18 08:34] LABS: ALK PHOS 224 U/L (45-117); BILIRUBIN,TOTAL 3.7 mg/dL (0.2-1.0); CREATININE 0.9 mg/dL (0.7-1.3); SGOT/AST 22 U/L (15-37); SGPT/ALT 104 U/L (12-78); TOT PROT 5.7 g/dl (6.4-8.2)
--- NOTE | 2016-12-18 10:21 | PN ---
GI Progress Note Subjective: GI NOte: Pain free and tolerating solid diet. Less icteric. Bili down to 3.5. No chills or fevers. Again discussed plan to attempt transfer to [facility] [place] and if not available to [facility] for rendezvous procedure to place internal stent and remove external bile bag. Continue antibiotics. - Objective Vital Signs: Vital Signs Temperature 98.5 F 12/18/16 07:58 Pulse Rate 55 L 12/18/16 07:58 Respiratory Rate 20 12/18/16 07:58 Blood Pressure 139/79 12/18/16 07:58 O2 Sat by Pulse Oximetry (%) 99 12/17/16 20:06 Labs: CBC, BMP 12/18/16 07:00 12/18/16 07:00 INR, PTT INR 1.07 (0.82-1.09) 12/17/16 07:00 Problem List - Problems (1) Hx of appendectomy Code(s): Z90.49 - ACQUIRED ABSENCE OF OTHER SPECIFIED PARTS OF DIGESTIVE TRACT (2) Colon polyps Code(s): K63.5 - POLYP OF COLON
--- NOTE | 2016-12-18 11:55 | PN ---
Progress Note (short form) - Note Progress Note: ^^^^^^^^^^^^^^^^^^^ medical Current Medications Acetaminophen (Tylenol Oral Solution -) 650 mg PO Q6H PRN PRN Reason: FEVER OR PAIN Lactated Ringer's (Lactated Ringers Solution) 1,000 mls @ 125 mls/hr IV ASDIR ROCKY Last Admin: 12/18/16 07:08 Dose: 125 mls/hr Piperacillin/Tazobactam/Dextrose (Zosyn 4.5gm Ivpb (Premix)) 100 mls @ 200 mls/ hr IVPB Q8H-IV ROCKY PRN Reason: Protocol Last Admin: 12/18/16 01:10 Dose: 200 mls/hr Insulin Aspart (Novolog Vial Sliding Scale -) 1 vial SQ Q6HPO RCOKY PRN Reason: Protocol Last Admin: 12/18/16 05:46 Dose: Not Given Morphine Sulfate (Morphine Injection -) 4 mg IVPUSH Q6H PRN PRN Reason: PAIN Last Admin: 12/16/16 23:45 Dose: 4 mg Laboratory Results - last 24 hr 12/17/16 12/17/16 12/18/16 17:52 21:35 05:43 WBC RBC Hgb Hct MCV MCH MCHC RDW Plt Count MPV Neutrophils % Lymphocytes % Monocytes % Eosinophils % Basophils % Sodium Potassium Chloride Carbon Dioxide Anion Gap BUN Creatinine Creat Clearance w eGFR POC Glucometer 192 234 182 Random Glucose Calcium Magnesium Total Bilirubin Direct Bilirubin AST ALT Alkaline Phosphatase C-Reactive Protein Total Protein Albumin Total Amylase Lipase 12/18/16 12/18/16 12/18/16 07:00 07:00 07:00 WBC 12.3 H RBC 4.28 Hgb 13.1 Hct 40.0 MCV 93.3 MCH 30.5 MCHC 32.7 RDW 14.9 Plt Count 226 MPV 10.3 Neutrophils % 79.2 Lymphocytes % 14.0 D Monocytes % 6.2 Eosinophils % 0.4 D Basophils % 0.2 D Sodium 138 Potassium 4.0 Chloride 101 Carbon Dioxide 28 Anion Gap 9 BUN 27 H Creatinine 0.9 Creat Clearance w eGFR > 60 POC Glucometer Random Glucose 178 H D Calcium 8.0 L Magnesium 2.4 Total Bilirubin 3.7 H D Direct Bilirubin 2.5 H D AST 22 D ALT 104 H D Alkaline Phosphatase 224 H C-Reactive Protein 6.5 H D Total Protein 5.7 L Albumin 2.5 L Total Amylase 55 D Lipase 434 H Vital Signs Temperature 98.5 F 12/18/16 07:58 Pulse Rate 55 L 12/18/16 07:58 Respiratory Rate 20 12/18/16 07:58 Blood Pressure 139/79 12/18/16 07:58 O2 Sat by Pulse Oximetry (%) 99 12/17/16 20:06 c/o pain when coughing & deep breath, otherwise okay ````````````````````` skin--icteric eyes--eomi, icteric lungs--clear heart-RR abd--with percut drain; that is draining biliary fluid; soft, NT neuro--alert, coherent; no focal deficits ```````````````````````````````````` Summ > Obstructive jaundice--2nd CBD stones & CBD stricture; which could not be cleared by ERCP,now has percut drain. Further intervention will be required, but will need to attain a level of stabilization before the next step is taken. Cont IV Abs; monitor blood work. > Sepsis--Gm(-) org; Enterobact cloaca; sensitive to Zosyn > DM--BGM's vary; has been under 200 > Elevated Lipase--post procedure; coming down. > hematuria--cause uncertain; may need US. ~~~~~~~~~~~~~~~~~ Dr Lucas Problem List - Problems (1) Abdominal pain Code(s): R10.9 - UNSPECIFIED ABDOMINAL PAIN Qualifiers: Abdominal location: right upper quadrant Qualified Code(s): R10.11 - Right upper quadrant pain; R10.11 - Right upper quadrant pain (2) Abnormal liver enzymes Code(s): R74.8 - ABNORMAL LEVELS OF OTHER SERUM ENZYMES (3) Common bile duct dilatation Code(s): K83.8 - OTHER SPECIFIED DISEASES OF BILIARY TRACT (4) Diabetes mellitus type 2, diet-controlled Code(s): E11.9 - TYPE 2 DIABETES MELLITUS WITHOUT COMPLICATIONS (5) Ascending aortic aneurysm Code(s): I71.2 - THORACIC AORTIC ANEURYSM, WITHOUT RUPTURE (6) Pulmonary granuloma Code(s): 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
--- NOTE | 2016-12-18 12:17 | PN ---
Progress Note, Physician History of Present Illness: Obstructive jaundice, common bile dfuct calculii with biliary obstruction and cholangitis.. failed ERCP extraction of calculii, , drainage of common bile duct . with percutaneous transhepatic ctheter. - Current Medication List Current Medications: Active Medications Acetaminophen (Tylenol Oral Solution -) 650 mg PO Q6H PRN PRN Reason: FEVER OR PAIN Lactated Ringer's (Lactated Ringers Solution) 1,000 mls @ 125 mls/hr IV ASDIR ROCKY Last Admin: 12/18/16 07:08 Dose: 125 mls/hr Piperacillin/Tazobactam/Dextrose (Zosyn 4.5gm Ivpb (Premix)) 100 mls @ 200 mls/ hr IVPB Q8H-IV ROCKY PRN Reason: Protocol Last Admin: 12/18/16 01:10 Dose: 200 mls/hr Insulin Aspart (Novolog Vial Sliding Scale -) 1 vial SQ Q6HPO ROCKY PRN Reason: Protocol Last Admin: 12/18/16 05:46 Dose: Not Given Morphine Sulfate (Morphine Injection -) 4 mg IVPUSH Q6H PRN PRN Reason: PAIN Last Admin: 12/16/16 23:45 Dose: 4 mg - Objective Vital Signs: Vital Signs Temperature 98.5 F 12/18/16 07:58 Pulse Rate 55 L 12/18/16 07:58 Respiratory Rate 20 12/18/16 07:58 Blood Pressure 139/79 12/18/16 07:58 O2 Sat by Pulse Oximetry (%) 99 12/17/16 20:06 Labs: CBC, BMP 12/18/16 07:00 12/18/16 07:00 INR, PTT INR 1.07 (0.82-1.09) 12/17/16 07:00 Problem List - Problems (1) Abdominal pain Code(s): R10.9 - UNSPECIFIED ABDOMINAL PAIN Qualifiers: Abdominal location: right upper quadrant Qualified Code(s): R10.11 - Right upper quadrant pain; R10.11 - Right upper quadrant pain (2) Jaundice Code(s): R17 - UNSPECIFIED JAUNDICE (3) Abnormal liver enzymes Code(s): R74.8 - ABNORMAL LEVELS OF OTHER SERUM ENZYMES (4) Leucocytosis Code(s): D72.829 - ELEVATED WHITE BLOOD CELL COUNT, UNSPECIFIED Assessment/Plan Patient feels better , bile draining through percutaneous catheter. Liver functions trending down. . I have explained to the patient and his daughter, the seriousness of septic cholangitis, and the need for penitentiary plan , for extraction of common bile duct calculii, and drainage of the gallbladder. If unable to extract the stones and drain the CBD adequately will need choledochojejunostomy/ choledochoduodenostomy. The surgical procedure hasbeen explained , if endoscopic drainage and stone extraction fails. I have discussed with Dr. Neville as well. He is on antibiotics and biliary drainage has been accomplished for now. Continue antibiotics[place] [id number].
[2016-12-19] MEDS: INSULIN SLIDING SCALE (NOVOLOG) 1 VIAL SQ SCH ×3 (00:48→12:53)
[2016-12-19] MEDS ORDERED: PT OWN MED DRAWER 7, Y5N ONE (01:13)
[2016-12-19] MEDS: PIPERACILLIN/TAZOB 4.5 GM 100 ML IVPB SCH (01:36)
[2016-12-19] MEDS: LACTATED RINGERS SOLUTION 1,000 ML IV SCH ×2 (01:41→10:44)
[2016-12-19 08:30] LABS: BASOPHIL 0.5 % (0-2.0); EOSINOPHIL 1.5 % (0-4.5); MCH 30.9 pg (25.7-33.7); MCHC 33.2 g/dl (32.0-35.9); MEAN CELL VOLUME 92.9 fl (80-96); MEAN PLT VOLUME 10.5 fl (7.5-11.1); PLATELET COUNT 294 K/MM3 (134-434); RDW 14.8 % (11.9-15.9); WHITE BLOOD COUNT 9.5 K/mm3 (4.0-10.0)
[2016-12-19 08:56] LABS: ALBUMIN 2.6 g/dl (3.4-5.0); ANION GAP 9 (8-16); BILIRUBIN,DIRECT 2.1 mg/dL (0.0-0.2); C-REACTIVE PROTEIN 6.8 MG/DL (0.00-0.3); CALCIUM 7.6 mg/dL (8.5-10.1); CO2 27 mmol/L (21-32); CREATININE 0.9 mg/dL (0.7-1.3); GLUCOSE,RANDOM 134 mg/dL (74-106); SGOT/AST 32 U/L (15-37); SGPT/ALT 89 U/L (12-78)
[2016-12-19 08:57] LABS: ALK PHOS 195 U/L (45-117); BILIRUBIN,TOTAL 3.3 mg/dL (0.2-1.0)
--- NOTE | 2016-12-19 09:29 | PN ---
Progress Note, Physician Chief Complaint: ID Beau continues Alert NAD and no fever chills - Current Medication List Current Medications: Active Medications Acetaminophen (Tylenol Oral Solution -) 650 mg PO Q6H PRN PRN Reason: FEVER OR PAIN Lactated Ringer's (Lactated Ringers Solution) 1,000 mls @ 125 mls/hr IV ASDIR ROCKY Last Admin: 12/19/16 01:41 Dose: 125 mls/hr Piperacillin/Tazobactam/Dextrose (Zosyn 4.5gm Ivpb (Premix)) 100 mls @ 200 mls/ hr IVPB Q8H-IV ROCKY PRN Reason: Protocol Last Admin: 12/19/16 01:36 Dose: 200 mls/hr Insulin Aspart (Novolog Vial Sliding Scale -) 1 vial SQ Q6HPO ROCKY PRN Reason: Protocol Last Admin: 12/19/16 06:17 Dose: Not Given Morphine Sulfate (Morphine Injection -) 4 mg IVPUSH Q6H PRN PRN Reason: PAIN Last Admin: 12/16/16 23:45 Dose: 4 mg - Objective Vital Signs: Vital Signs Temperature 99.2 F 12/19/16 06:07 Pulse Rate 64 12/19/16 06:07 Respiratory Rate 20 12/19/16 06:07 Blood Pressure 145/76 12/19/16 06:07 O2 Sat by Pulse Oximetry (%) 99 12/18/16 21:00 Cardiovascular: Yes: Regular Rate and Rhythm, S1, S2 Respiratory: Yes: WNL, Regular Gastrointestinal: Yes: Soft, Other (Biliary drain). No: Tenderness Edema: No Labs: CBC, BMP 12/19/16 06:00 12/19/16 06:00 INR, PTT INR 1.07 (0.82-1.09) 12/17/16 07:00 Assessment/Plan Microbiology 12/15/16 15:30 Blood - Peripheral Venous Blood Culture - Final Enterobacter Cloacae 12/15/16 15:30 Blood - Peripheral Venous Blood Culture - Final Enterobacter Cloacae Laboratory Tests 12/16/16 12/19/16 12/19/16 06:30 06:00 06:00 WBC 9.5 Hgb 13.8 Hct 41.5 Plt Count 294 D BUN 14 D Creatinine 0.9 Total Bilirubin 11.2 H D 3.3 H Direct Bilirubin 2.1 H AST 32 D ALT 89 H Alkaline Phosphatase 195 H Assessment Cholangitis wit Enterobacater Plan Organism sensitive to quinolone ? levofloxacin 500mg daily for positive blood culture 12/15 Transfer pending to [facility] MD
[2016-12-19] MEDS ORDERED: LEVOFLOXACIN 500 MG TABLET (FP) PO SCH (10:15)
--- NOTE | 2016-12-19 12:15 | DS ---
Physical Examination Vital Signs: Vital Signs Temperature 99.2 F 12/19/16 06:07 Pulse Rate 64 12/19/16 06:07 Respiratory Rate 20 12/19/16 06:07 Blood Pressure 145/76 12/19/16 06:07 O2 Sat by Pulse Oximetry (%) 99 12/18/16 21:00 Constitutional: Yes: Well Nourished, No Distress, Calm Eyes: Yes: EOM Intact, Sclera Icterus Neck: Yes: Supple Cardiovascular: Yes: Regular Rate and Rhythm Respiratory: Yes: Regular Gastrointestinal: Yes: Normal Bowel Sounds, Soft, Other (percutaneous catheter draining bile in place) ...Rectal Exam: Yes: Deferred Musculoskeletal: Yes: WNL Extremities: Yes: WNL Edema: No Peripheral Pulses WNL: Yes Integumentary: Yes: Jaundice Wound/Incision: Yes: Clean/Dry Neurological: Yes: WNL ...Motor Strength: WNL Psychiatric: Yes: WNL Labs: CBC, BMP 12/19/16 06:00 12/19/16 06:00 CBCD WBC 9.5 K/mm3 (4.0-10.0) 12/19/16 06:00 RBC 4.47 M/mm3 (4.00-5.60) 12/19/16 06:00 Hgb 13.8 GM/dL (11.7-16.9) 12/19/16 06:00 Hct 41.5 % (35.4-49) 12/19/16 06:00 MCV 92.9 fl (80-96) 12/19/16 06:00 MCHC 33.2 g/dl (32.0-35.9) 12/19/16 06:00 RDW 14.8 % (11.9-15.9) 12/19/16 06:00 Plt Count 294 K/MM3 (134-434) D 12/19/16 06:00 MPV 10.5 fl (7.5-11.1) 12/19/16 06:00 CMP Sodium 138 mmol/L (136-145) 12/19/16 06:00 Potassium 4.0 mmol/L (3.5-5.1) 12/19/16 06:00 Chloride 102 mmol/L (98-107) 12/19/16 06:00 Carbon Dioxide 27 mmol/L (21-32) 12/19/16 06:00 Anion Gap 9 (8-16) 12/19/16 06:00 BUN 14 mg/dL (7-18) D 12/19/16 06:00 Creatinine 0.9 mg/dL (0.7-1.3) 12/19/16 06:00 Creat Clearance w eGFR > 60 (>60) 12/19/16 06:00 Calcium 7.6 mg/dL (8.5-10.1) L 12/19/16 06:00 Total Bilirubin 3.3 mg/dL (0.2-1.0) H 12/19/16 06:00 AST 32 U/L (15-37) D 12/19/16 06:00 ALT 89 U/L (12-78) H 12/19/16 06:00 Alkaline Phosphatase 195 U/L (45-117) H 12/19/16 06:00 Total Protein 6.0 g/dl (6.4-8.2) L 12/19/16 06:00 Albumin 2.6 g/dl (3.4-5.0) L 12/19/16 06:00 Discharge Summary Reason For Visit: CHOLANGIECTASIS,LACTIC ACIDOSIS Current Active Problems Abdominal pain (Acute) Abnormal liver enzymes (Acute) gram negative sepsis/bacteremia Ascending aortic aneurysm (not new--stable) Common bile duct dilatation 2nd stricture(Acute) Diabetes mellitus type 2, diet-controlled History of cholecystectomy Hx of appendectomy Jaundice (Acute) Leucocytosis (Acute) 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 He was given IV Abs and GI & Surg called in. US revealed dilated CBD; ERCP done but could not extract stones; then percutaneous drain inserted. He was found to have Gm neg bacteremia sensitive to Abs; he was also seen by ID who adjusted his antibiotics. His fever subsided and then his LFts came down. His abd pain & nausea was relieved post drain placement. His glucose levels were in mid to high 100's; his WBC came down to below 10K. It was then advised that he be transfered to tertiary facility for more definitive Tx. His VSS before transfer and has voiced no new complaints. Condition: Good - Instructions Diet, Activity, Other Instructions: soft diet Diabetic; no added sugars check finger stick glucose TID and use insulin cover scale follow chemistries as needed Referrals: Jeremiah Lcuas MD [Staff Physician] - Disposition: TRANSFER ACUTE CARE/OTHER HOSP - Home Medications Comprehensive Discharge Medication List: Ambulatory Orders Insulin Sliding Scale [Novolog Vial Sliding Scale -] 1 vial SQ Q6HPO units Lactated Ringers Solution 1,000 ml IV ASDIR #1 bag 12/19/16 Levofloxacin [Levaquin -] 500 mg PO DAILY@0600 tablet 12/19/16 Morphine Injection - [Morphine Injection 2 mg/1 mL -] 4 mg IVPUSH Q6H PRN #1 syr 12/19/16
[2016-12-19 13:00] VITALS: BP 149/78; PULSE 83; TEMP 98.4
== END 2016-12-19 13:40 | disposition short-term general hospital (02) | DRG 872 ==
LOC: JER 08:00 → JERBED 13:59 → J8W 18:00 → OBSVTOIN 20:13
PROVIDERS: ADMIT Internal Medicine; ATTEND Internal Medicine
PROC: 0F9930Z Drainage of Common Bile Duct with Drainage Device, Percutaneous Approach (ICD-10-PCS; 2016-12-16)
PROC: 0FJB8ZZ Inspection of Hepatobiliary Duct, Via Natural or Artificial Opening Endoscopic (ICD-10-PCS; principal; 2016-12-16 13:30)
DX: A41.50 Gram-negative sepsis, unspecified (principal); E87.2 Acidosis; K80.33 Calculus of bile duct with acute cholangitis with obstruction; K63.5 Polyp of colon; K83.8 Other specified diseases of biliary tract; I71.2 Thoracic aortic aneurysm, without rupture; E11.9 Type 2 diabetes mellitus without complications; R31.9 Hematuria, unspecified
CPT/HCPCS: 36415; 47533; 47533-TC; 71250-TC; 74176-TC; 76000-TC; 76705-TC; 80053; 81003; 81015; 82150; 82248; 82378; 82550; 83036; 83605; 83690; 83735; 84484; 85025; 85610; 85730; 86140; 86301; 87040; 87070; 87075; 87102; 87116; 87186; 87205; 87206; 87210; 93005; 93010; 94760; 99284-25; A4358; C1729; C1769; G0378

== ENCOUNTER 2018-07-27 13:16 | Day surgery (SDC) | payer OTHER, BC | END 2018-07-27 17:15 | disposition home or self-care (01) | LOC: JASU-ENDO 13:16 ==